=== PATIENT | female | born 1995 | race Caucasian/White ===

== ENCOUNTER → 2017-03-13 00:14 | Observation (INO) ==
[2017-03-12 23:26] VITALS: BP 127/87
--- NOTE | 2017-03-13 00:22 | OB/GYN Progress Note ---
Date of Encounter: 03/13/17 Time of Encounter: 00:17 - Assessment and Plan (1) Herpes genitalia Current Visit: Yes Status: Acute 22 y/o @ 36 weeks presented to L&D with complaints of bleeding when she wiped. She reports some vulvar burning as well. No LOF or ctxs, exam showed active genital herpetic lesions on the labia minora, cervix closed, NST reactive, Valtrex 1g PO BID x 10 days for treatment and 500mg daily till delivery ok for discharge Qualifiers: Herpes simplex infection site: vulvovaginitis Qualified Code(s): A60.04 - Herpesviral vulvovaginitis Objective - Vital Signs Vital Signs: Vital Signs Temp Pulse Resp BP 03/12/17 23:25 98.8 F 103 16 127/87 Intake and Output 03/12/17 03/12/17 03/13/17 15:59 23:59 07:59 Other: Weight 110.4 kg
== END | disposition home or self-care (01) ==
LOC: 1NENULAB
PROVIDERS: ADMIT Advanced Practice Midwife; ATTEND Advanced Practice Midwife

== ENCOUNTER → 2017-03-17 01:01 | Observation (INO) ==
[2017-03-16 22:41] LABS: Bilirubin,Urine Small (Negative); Blood,Urine Negative (Negative); Clarity,Urine Cloudy (Clear); Color,Urine Dark Yellow (Yellow); Glucose,Urine (UA) 250 mg/dL (Normal); Ketones,Urine Negative (Negative); Leukocyte Esterase,Urine Small (Negative); Nitrite,Urine Negative (Negative); Protein,Urine 30 mg/dL (Neg-Trace); Specific Gravity,Urine > 1.030 (1.010-1.025); Urobilinogen,Urine Normal (Normal)
[2017-03-16 22:43] LABS: Bacteria,Urine Many per hpf (None-Few); RBC,Urine 0-3 per hpf (0-3); Squamous Epithelial Cell,Urine Many per lpf (None-Few); WBC,Urine 30-50 per hpf (0-3)
--- NOTE | 2017-03-16 22:44 | OB/GYN Progress Note ---
Date of Encounter: 03/17/17 Time of Encounter: 22:42 - Assessment and Plan (1) Bacterial vaginal infection Current Visit: Yes Status: Acute Pt instructed to fruit picker Flagyl at pharmacy as soon as possible. (2) 36 weeks gestation of Current Visit: Yes Status: Acute (3) Flank pain, acute Current Visit: Yes Status: Acute UA with small leukocytes and no blood. Labs WNL. Possibility of gallstones discussed with pt. Pt to keep food and symptom diary. Will return to L&D for worsening symptoms. SVE closed. Discharge home with precautions. Follow-up on Monday as scheduled. Subjective - Subjective Interval history: 22 year-old presenting at 36w6d and reports severe achy pain and tightening in right flank area. She denies any other complaints including LOF, VB, urinary sx, fever, chills, vaginal discharge, itching or burning. Good FM. Antepartum ROS: movement normal, no loss of fluid, no vaginal bleeding, no contractions Objective - Vital Signs Vital Signs: Intake and Output 03/16/17 03/16/17 03/16/17 07:59 15:59 23:59 Other: Weight 109.8 kg Patient Weight 03/16/17 23:59 Weight 109.8 kg - Exam FHR: category 1 FHR comments: NST reactive, baseline 145 BPM Abdomen: Present: soft, gravid. Absent: tenderness Uterus: Absent: tenderness Comments: Rare contractions on toco. + CVAT on right.
[2017-03-16 23:23] LABS: Basophils % 0.2 %; Eosinophils # 0.1 K/mcL (0.0-0.6); Eosinophils % 0.6 %; Hematocrit 35.5 % (35.3-44.9); Hemoglobin 11.5 g/dL (11.5-15.4); Immature Granulocytes % 0.5 % (0-4); Lymphocytes # 1.6 K/mcL (0.6-4.6); Lymphocytes % 14.4 %; Mean Corpuscular HGB Conc 32.4 g/dL (31.6-35.5); Mean Corpuscular Hemoglobin 26.4 pg (28.0-33.3); Mean Corpuscular Volume 81.4 fL (83.0-100.0); Mean Platelet Volume 10.8 fL (9.4-12.4); Monocytes # 0.8 K/mcL (0.0-1.3); Monocytes % 7.1 %; Neutrophils # 8.5 K/mcL (1.6-8.9); Platelet Count 247 K/mcL (140-400); Red Blood Count 4.36 M/mcL (3.82-4.97); Red Cell Distribution Width 13.5 % (11.5-14.5); Segmented Neutrophils % 77.2 %
[2017-03-16 23:39] LABS: Alanine Aminotransferase 8 Units/L (0-55); Aspartate Amino Transferase 9 Units/L (5-34); BUN/Creatinine Ratio 11 (6-26); Blood Urea Nitrogen 7 mg/dL (7-20); Lactate Dehydrogenase 137 Units/L (159-327); eGFR For African Americans > 60 (> 60); eGFR For Non-African Americans > 60 (> 60)
[~2017-03-17 01:01] MED LIST: Acetaminophen 325 MG TABLET PO ONE
== END | disposition home or self-care (01) ==
LOC: 1NENULAB
PROVIDERS: ADMIT Registered Nurse; ATTEND Registered Nurse

== ENCOUNTER → 2017-03-21 06:52 | Observation (INO) ==
[2017-03-21 05:37] VITALS: BP 136/78
--- NOTE | 2017-03-21 06:31 | OB/GYN Progress Note ---
Date of Encounter: 03/21/17 Time of Encounter: 06:29 - Assessment and Plan (1) 37 weeks gestation of Current Visit: Yes Status: Acute NST reactive (2) False labor Current Visit: Yes Status: Acute No cervical change since appt in office yesterday. Discharge home with labor precautions. (3) Bacterial vaginal infection Current Visit: No Status: Acute Pt taking flagyl (4) Herpes genitalia Current Visit: No Status: Acute No current active lesions. Pt encouraged to take the medication she was given for suppression. Qualifiers: Herpes simplex infection site: vulvovaginitis Qualified Code(s): A60.04 - Herpesviral vulvovaginitis Subjective - Subjective Interval history: 22 year-old presenting at 37w4d with c/o contractions that started around 0200 this am. She denies LOF or VB. She reports that the contractions are getting closer together. She was 1cm in office yesterday. Good FM. Antepartum ROS: movement normal, contractions, no loss of fluid, no vaginal bleeding Objective - Vital Signs Vital Signs: Vital Signs Temp Pulse Resp BP 03/21/17 05:36 97.2 F L 100 16 136/78 Intake and Output 03/20/17 03/20/17 03/21/17 15:59 23:59 07:59 Other: Weight 110.4 kg Patient Weight 03/21/17 23:59 Weight 110.4 kg - Exam FHR: category 1 FHR comments: NST reactive Abdomen: Present: soft, gravid. Absent: tenderness Uterus: Absent: tenderness Cervical dilation: 1 Cervix effacement: 75 station: -2 Comments: SSE with thick clear-white discharge. No active HSV lesions noted.
== END | disposition home or self-care (01) ==
LOC: 1NENULAB
PROVIDERS: ADMIT Registered Nurse; ATTEND Registered Nurse

== ENCOUNTER 2017-03-23 21:55 | Observation (INO) ==
--- NOTE | 2017-04-17 09:40 | OB/GYN Progress Note ---
Date of Encounter: 03/23/17 Time of Encounter: 22:20 - Assessment and Plan (1) False labor Status: Acute Pt here with concern for labor. No cervical change noted. Discharged home in stable condition. Subjective - Subjective Interval history: Late entry for triage visit. 03/23/17 Pt here for labor evaluation. Contractions. Antepartum ROS: movement normal, contractions Objective - Exam Abdomen: Present: soft Uterus: Present: normal Cervical dilation: 1-2
== END 2017-03-23 22:35 | disposition home or self-care (01) ==
LOC: 1NENULAB
PROVIDERS: ADMIT Advanced Practice Midwife; ATTEND Advanced Practice Midwife

== ENCOUNTER 2017-04-07 03:45 | Inpatient (IN) ==
[2017-04-07] MEDS ORDERED: Metoclopramide 10 MG/2 ML VIAL IVP PRN (04:07)
[2017-04-07] MEDS ORDERED: Famotidine 20 MG/2 ML VIAL IVP PRN (04:07)
[2017-04-07] MEDS ORDERED: miSOPROStol 25 MCG TABLET PO PRN (04:07)
[2017-04-07] MEDS ORDERED: Naloxone 0.4 MG/ML INJ IVP PRN (04:07)
[2017-04-07] MEDS ORDERED: Ringers Solution, Lactated 1,000 ML IVC SCH (04:15)
[2017-04-07 04:48] LABS: Basophils % 0.2 %; Eosinophils # 0.1 K/mcL (0.0-0.6); Eosinophils % 1.2 %; Hematocrit 36.6 % (35.3-44.9); Hemoglobin 11.7 g/dL (11.5-15.4); Immature Granulocytes % 0.5 % (0-4); Immature Platelets 7.4 % (1.1-6.1); Lymphocytes # 1.6 K/mcL (0.6-4.6); Lymphocytes % 14.2 %; Mean Corpuscular Hemoglobin 26.2 pg (28.0-33.3); Mean Corpuscular Volume 81.9 fL (83.0-100.0); Mean Platelet Volume 11.6 fL (9.4-12.4); Monocytes # 0.9 K/mcL (0.0-1.3); Monocytes % 7.9 %; Neutrophils # 8.4 K/mcL (1.6-8.9); Platelet Count 240 K/mcL (140-400); Red Blood Count 4.47 M/mcL (3.82-4.97); Red Cell Distribution Width 14.5 % (11.5-14.5)
--- NOTE | 2017-04-07 06:54 | OB/GYN History & Physical ---
Date of Encounter: 04/07/17 Time of Encounter: 06:52 Assessment and Plan (1) 40 weeks gestation of Current visit: Yes Status: Acute induction of labor po cytotec nubain prn may augment with rupture of membranes and/or pitocin prn epidural if/when desired anticipate vaginal delivery History of Present Illness Chief complaint: induction HPI: Ms. Gregorio is a 22 year old female at 40.0 weeks gestation who presents for induction of labor. 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 Denies vaginal bleeding, loss of fluid, dizziness, blurred vision, headache. Reports good movement. Labs: GBS -, rubella immune Blood type A+ Past Med Surg Social Fam HX - Past Medical History Medical history: no medical history Psychiatric history: no psych history - Past Surgical History Surgical History: other - Social History Smoking Status: Never smoker Smokeless Tobacco Status: No Alcohol use: none Drug use: none - Family History Mother Adopted: No Family Member Ethnicity: Non- Living Status: Still Living Hx Family Cardiac Disorders: Yes (HTN) Hx Family Respiratory Disorders: No Hx Family Cancer: No Hx Family GI Disorders: No Hx Family Genitourinary Disorders: No Hx Family Endocrine Disorder: Yes (diabetes) Hx Family Musculoskeletal Disorders: No Hx Family Neuromuscular Disorders: No Hx Family Neurologic Disorders: No Hx Family HEENT Disorders: No Hx Family Autoimmune Disorders: No Hx Family Reproductive Disorders: No Hx Family Psychosocial Disorders: No Hx Family Medical Disorders: No Obstetrical History - Pregnancies : 1 Para: 0 Term: 0 : 0 Ab's: 0 Livin Medications and Allergies One Tablet 1 tab PO DAILY 03/12/17 [History] valACYclovir [Valtrex] 500 mg PO DAILY #60 tablet 03/13/17 [Rx] 3 Allergy/AdvReac Type Severity Reaction Status Date / Time No Known Allergies Allergy Verified 03/23/17 22:01 Review of System OB - Constitutional Constitutional ROS IM: as per HPI Exam - Constitutional Constitutional: well developed, well nourished, no acute distress - HEENT HEENT: Normocephaly, Mucus Membranes Moist - Neck Neck exam: normal inspection - Lungs Respiratory exam: CTAB - Cardiovascular Cardiovascular exam: RRR, +S1, +S2 - Abdomen Abdomen: Present: bowel sounds normal, gravid, non tender - Extremities Extremities exam: normal capillary refill, normal inspection, pedal edema, warm Results Result Diagrams: 04/07/17 04:41 Abnormal lab results MCV 81.9 fL (83.0-100.0) L 04/07/17 04:41 MCH 26.2 pg (28.0-33.3) L 04/07/17 04:41 Immature Plt Fraction 7.4 % (1.1-6.1) H 04/07/17 04:41 All other labs normal. - VTE Reasons for not Prescribing Prophylaxis: Treatment not Indicated - Low risk for VTE - Attending Attestation I examined this patient and my medical decision-making was reviewed with the Resident Physician. I agree with the documented findings, disposition and treatment plan as described except to the extent set forth below, except that this is an induction for medical indications, obesity at 40 weeks with a history of decreased movement. Please see my H&P from [facility] which has been included in the patient's medical record
[2017-04-07] MEDS ORDERED: miSOPROStol 100 MCG TABLET PO STA (09:20)
--- NOTE | 2017-04-07 09:29 | History & Physical Report ---
Date of Encounter: 04/07/17 Time of Encounter: 09:28 24 Hour HP Update - Instructions Instructions: If the History and Physical is less than 30 days old and was completed prior to A.M. admission and or procedure and has NOT been updated on calendar day of procedure please complete this update prior to performing procedure. - Update Patient reports changes in Medical Condition: No Changes in examination, assessment, or condition: No Changes in Medication: No Preop tests/diagnostics Reviewed: Yes Surgery Remains Indicated: Yes Consent for Planned Operative Procedure(s) Verified: Yes - Pre-Operative Checklist Preoperative Checklist Indicated: No Prophylactic Antibiotic Ordered: No Is VTE Prophylaxis Indicated?: NO
[2017-04-07] MEDS ORDERED: miSOPROStol 25 MCG TABLET PO STA (09:33)
--- NOTE | 2017-04-07 09:36 | OB Labor Progress Note ---
Date of Encounter: 04/07/17 Time of Encounter: 09:34 Labor Progress Note - Subjective Subjective: The patient reports an active fetus and also feeling that the contractions are coming regularly and strong. She denies any rupture of membranes or vaginal bleeding - Vital Signs Vital Signs: Afebrile, vital signs stable - Cervix Cervix: 2/90/-1, vertex with bulging membranes - Heart Tones Heart Tones: 130s baseline, CAT 1 - [place]: Contractions every 2-4 minutes after 50 mcg of Cytotec orally at 5:15 AM - Interventions Interventions: 40 week IUP for induction of labor secondary to medical indication of obesity and decreased movement - Plan Plan: The patient has received oral Cytotec. Cervix feels firm around the internal os , Pulido balloon placed without difficulty and filled with 30 mL of sterile water. The patient tolerated this well. Continue induction with a second dose of oral Cytotec, 25 MCG's
[2017-04-07] MEDS ORDERED: *HR* Nalbuphine 20 MG/ML AMPUL IVP PRN (10:33)
[2017-04-07] MEDS ORDERED: *HR* Nalbuphine 20 MG/ML AMPUL ONE (10:35)
[2017-04-07] MEDS ORDERED: Ringers Solution, Lactated 500 ML IVC ONE (12:00)
[2017-04-07] MEDS ORDERED: *HR* Ropivacaine/PF 0.2% 10 ML AMPUL EP ONE (12:00)
[2017-04-07] MEDS ORDERED: EPHEDrine 50 MG/ML VIAL IVP PRN (12:00)
[2017-04-07] MEDS ORDERED: *HR* FentaNYL (PF) 100 MCG/2 ML VIAL EP ONE (12:00)
[2017-04-07] MEDS ORDERED: Epidural Premix (fent/bupiv) 110 ML EP SCH (12:00)
[2017-04-07] MEDS ORDERED: *HR* FentaNYL (PF) 100 MCG/2 ML VIAL ONE ×3 (12:02→18:51)
[2017-04-07] MEDS ORDERED: Epidural Premix (fent/bupiv) 110 ML EP ONE ×2 (12:02→17:35)
--- NOTE | 2017-04-07 12:24 | Anesthesia Evaluation PreOp ---
Date of Encounter: 04/07/17 Time of Encounter: 11:55 - Past History Planned Operation: YU Cardiac History: Denies any Significant Hx Pulmonary History: Denies Any Significant HX MOLD SHIFTER History: Denies Any Significant HX Other Medical History: Denies Any Significant HX Anesthesia History: No Prior Anesthetic Complications, Past Anesthesia ( Tonsillectomy) : Yes Alcohol Use: none Drug use: none Medications and Allergies One Tablet 1 tab PO DAILY 03/12/17 [History] valACYclovir [Valtrex] 500 mg PO DAILY #60 tablet 03/13/17 [Rx] 3 Allergy/AdvReac Type Severity Reaction Status Date / Time No Known Allergies Allergy Verified 03/23/17 22:01 - Meds/Allergy Pre-op Review Medications Reviewed: Yes Allergies Reviewed: Yes Beta Blockers on Current Med List: No Anesthesia Results - Labs 04/07/17 04:41 Anesthesia Exam Height: 1.7m Weight: 109.5kg NPO (# of Hours): >4hrr Pain Scale: 10 Pain Scale Used: Numeric (1 - 10) - HEENT Pupil (Motor): Pupils equal Mallampati: II Teeth: Normal Oral Opening: Greater than 3 - MOLD SHIFTER LOC: Oriented MOLD SHIFTER Motor: Normal RUE, Normal LUE, Normal RLE, Normal LLE, Normal Face MOLD SHIFTER Sensory: Normal: RUE, LUE, RLE, LLE, Face - Cardiac Rhythm: Regular Murmur: None JVD: No Carotid Bruit: No - Pulmonary Breath Sounds: bilateral Clear Respiratory Effort: Symmetrical Anesthesia Assess/Plan ASA Score: 2 Modified Serene Scale for Level of Consciousness: Cooperative, oriented, and tranquil Anesthetic Plan: Regional Monitoring Plan: Standard Monitors Recovery Plan: Other
--- NOTE | 2017-04-07 12:26 | Anesthesia Procedures ---
Date of Encounter: 04/07/17 Time of Encounter: 12:05 Procedures: Anesthesia - Epidural/Spinal Patient ID/Chart reviewed: Yes Patient examined: Yes OB Eval: Gestational age: 40 OB Eval: : 1 OB Eval: Hx Para: 0 OB Eval: Contractions: Non-stressed pattern Consent Obtained: Yes Supplemental Oxygen: None/Room Air Site Prep: Aseptic Technique, Sterile prep and drape, 0.5% Chlorhexidine/Alcohol Patient position: upright Local Anesthetic: Lidocaine 1% Amount of Local Anesthetic used: 3 Touhy Needle Gauge: 18 Touhy Needle Depth (cm): 8 Catheter Depth at Skin (cm): 12 Test Dose (1.5% Lido + Epi): Volume given (mls): 5 Test Dose Result: Negative Loading Dose: Fentanyl (mcg): 100 Loading Dose: Other: Ropivacaine 0.5% 10mL Loading Dose Administered: Thru Catheter Infusion Med: 0.125% Bupivacaine w/ 2 mcg/ml Fentanyl Infusion Rate (mls/hr): 16 (Bolus 4mL q15min; Max 3/hr) Catheter Secured in Place: Tegaderm, Tape Interspace Used: L3-L4 Loss of Resistance ([place]): Yes Blood: No CSF: No Paresthesia: No Procedure: x1 attempt. Patient tolerated well. Vitals + FHT's: VSS and FHR stable throughout procedure. See nursing documentation.
--- NOTE | 2017-04-07 14:04 | OB Labor Progress Note ---
Date of Encounter: 04/07/17 Time of Encounter: 14:02 Labor Progress Note - Subjective Subjective: Pt comfortable in bed with epidural at this time. - Cervix Cervix: 4/90/-2 - Heart Tones Heart Tones: 135/moderate/+accels/-decels - Denhoff Denhoff: q2-3 - Interventions Interventions: AROM for small amount of clear fluid - Plan Plan: Continue current management plan Pitocin if no further cervical change Anticipate
[2017-04-07] MEDS ORDERED: Oxytocin 20 units/ LR 1000 mL 20 UNIT/1,000 ML BAG IVC ONE (18:43)
--- NOTE | 2017-04-07 23:00 | OB/GYN Procedure Note ---
Delivery - Delivery Date: 04/07/17 Provider: Lashonda Lassiter Intrapartum events: none Delivery induction: misoprostol Delivery augmentation: rupture of membranes Delivery monitor: external FHT, external uterine, internal uterine Anesthesia: intravenous, epidural Estimated Blood Loss: 200 - (s) A Delivery Date: 04/07/17 Delivery Time: 22:32 Presentation: vertex Position: SHELLY Route of delivery: Gender: Male Viability: Viable Pounds: 7 Ounces: 2 at 1 minute: 8 at 5 mins: 9 Shoulder Dystocia: not encountered Specimens collected: cord blood Placenta: spontaneous, uterine exploration Cord: nuchal cord, 3 umbilical vessels, nuchal reduced - Repair Episiotomy: none Laceration Description: Periurethral, Perineal - 2nd Degree - Complications Delivery complications: none Delivery comments: The patient was complete and pushing with epidural anesthesia with a spontaneous vaginal delivery in the SHELLY position of a vigorous male weighing 7 lbs. 2 oz. with Apgars of 8 at 1 minute and 9 at 5 minutes. was placed on the maternal abdomen. The cord was clamped and cut after pulsations ceased. Cord blood obtained. The placenta was delivered spontaneous and intact. Right labial laceration was not hemostatic and was repaired with 4-0 Vicryl in a running nonlocking fashion. Left periurethral laceration was hemostatic and not repaired. Second-degree perineal laceration was repaired with 3-0 Vicryl in usual fashion. Estimated blood loss 200 mL, complications none - Disposition Mom disposition: stable in LDR disposition: stable in LDR
[2017-04-07] MEDS ORDERED: Lanolin 7 G OINT...G. TP PRN (23:33)
[2017-04-07] MEDS ORDERED: Benzocaine/Menthol 56 GM AEROSOL SPRAY TP PRN (23:33)
[2017-04-07] MEDS ORDERED: Acetaminophen 325 MG TABLET PO PRN (23:33)
[2017-04-07] MEDS ORDERED: Oxytocin 20 units/ LR 1000 mL 20 UNIT/1,000 ML BAG IVC SCH (23:33)
[2017-04-08] MEDS: Ibuprofen 600 MG TABLET PO PRN ×2 (03:55→15:20)
[2017-04-08 05:56] LABS: Basophils % 0.1 %; Eosinophils # 0.1 K/mcL (0.0-0.6); Eosinophils % 0.5 %; Hematocrit 30.1 % (35.3-44.9); Immature Granulocytes % 0.6 % (0-4); Lymphocytes # 1.3 K/mcL (0.6-4.6); Lymphocytes % 8.2 %; Mean Corpuscular HGB Conc 32.2 g/dL (31.6-35.5); Mean Corpuscular Hemoglobin 26.2 pg (28.0-33.3); Mean Corpuscular Volume 81.4 fL (83.0-100.0); Mean Platelet Volume 11.6 fL (9.4-12.4); Monocytes % 6.2 %; Neutrophils # 13.5 K/mcL (1.6-8.9); Platelet Count 188 K/mcL (140-400); Red Cell Distribution Width 14.6 % (11.5-14.5); Segmented Neutrophils % 84.4 %
[2017-04-08 05:57] LABS: Hemoglobin 9.7 g/dL (11.5-15.4)
[2017-04-08] MEDS: Prenatal Vit/FA 1 EACH TABLET PO SCH (08:43)
[2017-04-08] MEDS ORDERED: valACYclovir 500 MG TABLET PO SCH (09:00)
--- NOTE | 2017-04-08 09:42 | OB/GYN Progress Note ---
Date of Encounter: 04/08/17 Time of Encounter: 09:40 - Assessment and Plan (1) Status post normal delivery Current Visit: Yes Status: Acute s/p , PPD#1, patient doing well, cont current inpt care Subjective - Subjective Patient reports: appetite normal, voiding normally, pain well controlled, ambulating normally : doing well Objective - Latest Vital Signs Latest vital signs: Vital Signs Temp Pulse Resp BP Pulse Ox 04/08/17 07:30 98.3 F 91 16 117/71 04/08/17 03:30 98.9 F 96 20 126/72 99 04/08/17 02:25 99 F 105 20 126/84 98 04/08/17 01:25 98.1 F 102 16 124/80 99 Intake and Output 04/07/17 04/08/17 04/08/17 23:59 07:59 15:59 Intake Total 300 / 300 360 / 360 Output Total 950 / 950 Balance -650 / -650 360 / 360 Intake: Oral 300 / 300 360 / 360 Output: Urine 950 / 950 Other: Meal Breakfast Percent of Meal Consumed 100% Weight 106.4 kg Patient Weight 04/08/17 23:59 Weight 106.4 kg - Exam Lungs: bilateral: normal Chest: Normal S1, Normal S2 Extremities: Present: normal Abdomen: Present: soft Uterus: Present: normal, firm - Labs Labs: Laboratory Results - last 24 hr 04/08/17 05:40 WBC 15.9 H RBC 3.70 L Hgb 9.7 L D Hct 30.1 L MCV 81.4 L MCH 26.2 L MCHC 32.2 RDW 14.6 H Plt Count 188 MPV 11.6 Immature Gran % 0.6 Seg Neutrophils % 84.4 Lymphocytes % 8.2 Monocytes % 6.2 Eosinophils % 0.5 Basophils % 0.1 Neutrophils # 13.5 H Lymphocytes # 1.3 Monocytes # 1.0 Eosinophils # 0.1 Basophils # 0.0
[2017-04-08] MEDS ORDERED: Sennosides 8.6 MG TABLET PO PRN (20:25)
[2017-04-09] MEDS: Ibuprofen 600 MG TABLET PO PRN (05:10)
[2017-04-09 08:50] VITALS: BP 117/69
[2017-04-09] MEDS: Prenatal Vit/FA 1 EACH TABLET PO SCH (08:53)
--- NOTE | 2017-04-09 09:30 | Discharge Summary ---
Date of Encounter: 04/09/17 Time of Encounter: 09:28 - Discharge Diagnosis (1) 40 weeks gestation of Priority: Secondary Status: Acute (2) Status post normal delivery Priority: Primary Status: Acute Comments: Patient was successful induction of labor. She is meeting milestones and is requesting discharge - Discharge Medications Prescriptions: Ibuprofen [Motrin] 600 mg PO Q6HR PRN #60 tab PRN Reason: Pain Home Medications: One Tablet 1 tab PO DAILY 03/12/17 [History] Breast Pump [BREAST PUMP] 1 each .ROUTE AD #1 each 04/09/17 [Rx] Ibuprofen [Motrin] 600 mg PO Q6HR PRN #60 tab 04/09/17 [Rx] Lanolin [Lansinoh] 1 appl TP QID PRN 04/09/17 [Rx] Allergies/Adverse Reactions: 3 Allergy/AdvReac Type Severity Reaction Status Date / Time No Known Allergies Allergy Verified 03/23/17 22:01 Data Procedures and tests throughout hospitalization: Laboratory Tests 04/07/17 04/08/17 04:41 05:40 WBC 11.1 15.9 H RBC 4.47 3.70 L Hgb 11.7 9.7 L D Hct 36.6 30.1 L MCV 81.9 L 81.4 L MCH 26.2 L 26.2 L MCHC 32.0 32.2 RDW 14.5 14.6 H Plt Count 240 188 MPV 11.6 11.6 Immature Gran % 0.5 0.6 Seg Neutrophils % 76.0 84.4 Lymphocytes % 14.2 8.2 Monocytes % 7.9 6.2 Eosinophils % 1.2 0.5 Basophils % 0.2 0.1 Neutrophils # 8.4 13.5 H Lymphocytes # 1.6 1.3 Monocytes # 0.9 1.0 Eosinophils # 0.1 0.1 Basophils # 0.0 0.0 Immature Plt Fraction 7.4 H Date of admission: 04/07/17 03:55 Primary care physician: Jessee Burgos Consults: 04/07/17 23:33 Consult to Slot Machine Repairer [CONS] Routine Comment: Vaginal delivery, consult needed Discharging clinician: Lashonda Lassiter Anticipated date of discharge: 04/09/17 - Patient Status Disposition: Home, Self-Care Condition: Good Functional capacity at discharge: independent ambulation Overall status at discharge: patient is progressing back to baseline - Discharge Instructions Follow Up With: Francine Michelle DO [Primary Care Provider] - Lashonda Lassiter MD [Partnered Physician] - - Diet and Activity Activity: increase activity as tolerated, resume usual activities as tolerated Diet: regular diet Hospital Course Procedures: IOL w/ Reason for admission: induction of labor, IUP at term Delivery: Episiotomy: none Laceration: 2nd degree Other procedures: none complications: none Discharge diagnosis: IUP at term delivered Diamond baby: male Hospital course: Uncomplicated, patient meeting milestones Time Attestation: Total time spent providing and/or coordinating discharge services: Time Spent: Less than 30 minutes Exam - Constitutional Vitals: Temp Pulse Resp BP Pulse Ox 97.6 F 77 16 117/69 99 04/09/17 07:40 04/09/17 07:40 04/09/17 07:40 04/09/17 07:40 04/08/17 19:50 General appearance IM: A&O X 3, pleasant, no acute distress, obese - Respiratory Respiratory exam: Absent: respiratory distress - Cardiovascular Cardiovascular exam IM: Absent: irregular rhythm - GI/Abdominal GI/Abdominal exam IM: soft, no peritoneal signs - Rectal Rectal exam: deferred - Uterine Tone: Firm Uterus Position: 1 Finger Below Umbilicus, Midline - Extremities Exam Extremities exam IM: Present: pedal edema, warm. Absent: calf tenderness - Neurological Exam Neurological exam: alert, no focal deficits
== END 2017-04-09 15:09 | disposition home or self-care (01) | DRG 774 ==
LOC: 1NENULAB 03:55 → 1NENUOBS 04-08 00:41
PROVIDERS: ADMIT Obstetrics & Gynecology; ATTEND Obstetrics & Gynecology

== ENCOUNTER → 2019-02-24 20:53 | Observation (INO) ==
[2019-02-24 19:13] LABS: Bilirubin,Urine Negative (Negative); Blood,Urine Negative (Negative); Clarity,Urine Clear (Clear); Color,Urine Yellow (Yellow); Glucose,Urine (UA) Normal (Normal); Ketones,Urine Negative (Negative); Leukocyte Esterase,Urine Negative (Negative); Nitrite,Urine Negative (Negative); PH,Urine 6.5 pH Units (5.0-8.0); Protein,Urine Negative (Neg-Trace); Specific Gravity,Urine 1.026 (1.010-1.025); Urobilinogen,Urine Normal (Normal)
[2019-02-24 19:22] LABS: Amphetamine Screen,Urine Negative ng/mL (Cutoff=1000); Barbiturate Screen,Urine Negative ng/mL (Cutoff=200); Benzodiazepines Screen,Urine Negative ng/mL (Cutoff=200); Cannabinoid Screen,Urine Negative ng/mL (Cutoff = 50); Cocaine Screen,Urine Negative ng/mL (Cutoff= 300); Opiate Screen,Urine Negative ng/mL (Cutoff=300); Phencyclidine Screen,Urine Negative ng/mL (Cutoff=25)
--- NOTE | 2019-02-24 19:48 | OB/GYN Progress Note ---
Date of Encounter: 02/24/19 Time of Encounter: 19:44 - Assessment and Plan (1) 25 weeks gestation of Current Visit: Yes Status: Acute Urinalysis - dehydration IV fluids Bentyl Discharge home with labor precautions and oral rehydration Follow up with routine care and PRN POC per consult with Dr Cody (2) Alternating constipation and diarrhea Current Visit: Yes Status: Acute Subjective - Subjective Principal diagnosis: Back pain Interval history: Ms Gregorio is a at 25 weeks and 0 days that presents to triage with c/o diarrhea alternating with constipation x 1 day and back pain that comes and goes that began after the bowel changes. She denies being around anyone that has similar symptoms, eating any different foods, or eating any foods that have been sitting out for a long period of time. She states fetus is moving well. She has been seen by Dr Lassiter for her care. She states she has a mild headache. She denies vision changes, epigastric pain, leaking of fluid, and vaginal bleeding. Antepartum ROS: movement normal Objective - Vital Signs Vital Signs: Intake and Output 02/24/19 02/24/19 02/24/19 07:59 15:59 23:59 Other: Weight 105 kg Patient Weight 02/24/19 23:59 Weight 105 kg - Exam FHR comments: Baseline 150 with moderate variability and 10 x 10 accels with no decels. No contractions per toco or palpation. Auscultation: bilateral: normal Abdomen: Present: normal appearance, soft, gravid, other (no CVA tenderness). Absent: tenderness Uterus: Present: normal. Absent: firm, tenderness - Labs Labs: Abnormal lab results Ur Specific [place] 1.026 (1.010-1.025) H 02/24/19 18:54
[~2019-02-24 20:53] MED LIST changes: -Acetaminophen 325 MG TABLET PO ONE; +Ondansetron ODT 4 MG TAB.RAPDIS SL PRN; +Ringers Solution, Lactated 1,000 ML IVC ONE
== END | disposition home or self-care (01) ==
LOC: 1NENULAB
PROVIDERS: ADMIT Advanced Practice Midwife; ATTEND Advanced Practice Midwife

== ENCOUNTER 2019-05-01 20:25 | Observation (INO) ==
[2019-05-01 18:40] LABS: Bilirubin,Urine Small (Negative); Blood,Urine Negative (Negative); Clarity,Urine Clear (Clear); Color,Urine Dark Yellow (Yellow); Glucose,Urine (UA) 250 mg/dL (Normal); Ketones,Urine Negative (Negative); Leukocyte Esterase,Urine Negative (Negative); Nitrite,Urine Negative (Negative); PH,Urine 5.5 pH Units (5.0-8.0); Protein,Urine Negative (Neg-Trace); Specific Gravity,Urine 1.029 (1.010-1.025); Urobilinogen,Urine Normal (Normal)
[2019-05-01 18:51] LABS: Amphetamine Screen,Urine Negative ng/mL (Cutoff=1000); Barbiturate Screen,Urine Negative ng/mL (Cutoff=200); Benzodiazepines Screen,Urine Negative ng/mL (Cutoff=200); Cannabinoid Screen,Urine Negative ng/mL (Cutoff = 50); Cocaine Screen,Urine Negative ng/mL (Cutoff= 300); Opiate Screen,Urine Negative ng/mL (Cutoff=300); Phencyclidine Screen,Urine Negative ng/mL (Cutoff=25)
--- NOTE | 2019-05-01 20:13 | Discharge Summary ---
Date of Encounter: 05/01/19 Time of Encounter: 20:13 - Discharge Diagnosis (1) 34 weeks gestation of Priority: Primary Status: Acute Comments: Admit to observation for complaint of abdominal pain, possible contractions (2) NST (non-stress test) reactive Priority: Secondary Status: Acute Comments: FHR 130 bpm, moderate variability, +15x15 accels, no decels. (3) uterine contractions in third trimester, antepartum Priority: Secondary Status: Acute Comments: Rare contractions noted on toco monitor. SVE 1/thick/high - Discharge Medications Prescriptions: No Action Vitamins Tablet 1 tab PO DAILY Dicyclomine [Bentyl] 10 mg PO QID PRN #10 capsule PRN Reason: Intestinal Cramping Home Medications: Gs Vitamins Tablet 1 tab PO DAILY 11/27/18 [History] Dicyclomine [Bentyl] 10 mg PO QID PRN #10 capsule 02/24/19 [Rx] Allergies/Adverse Reactions: Allergy/AdvReac Type Severity Reaction Status Date / Time hydromorphone [From Dilaudid] Allergy Hives Verified 11/27/18 12:01 Data Procedures and tests throughout hospitalization: Laboratory Tests 05/01/19 05/01/19 18:08 18:08 Urine Color Dark Yellow Urine Clarity Clear Urine pH 5.5 Ur Specific Sparks 1.029 H Urine Protein Negative Urine Glucose (UA) 250 H Urine Ketones Negative Urine Blood Negative Urine Nitrite Negative Urine Bilirubin Small H Urine Urobilinogen Normal Ur Leukocyte Esterase Negative Ur Culture Indicated? NO Urine Opiates Screen Negative Ur Buprenorphine Scrn Negative Ur Barbiturates Screen Negative Ur Phencyclidine Scrn Negative Ur Amphetamines Screen Negative U Benzodiazepines Scrn Negative Urine Cocaine Screen Negative U Marijuana (THC) Screen Negative Ur Drug Screen Interp See Below Labs on day of discharge: Labs from last 24 hours 05/01/19 05/01/19 18:08 18:08 Urine Color Dark Yellow Urine Clarity Clear Urine pH 5.5 Ur Specific Sparks 1.029 H Urine Protein Negative Urine Glucose (UA) 250 H Urine Ketones Negative Urine Blood Negative Urine Nitrite Negative Urine Bilirubin Small H Urine Urobilinogen Normal Ur Leukocyte Esterase Negative Ur Culture Indicated? NO Urine Opiates Screen Negative Ur Buprenorphine Scrn Negative Ur Barbiturates Screen Negative Ur Phencyclidine Scrn Negative Ur Amphetamines Screen Negative U Benzodiazepines Scrn Negative Urine Cocaine Screen Negative U Marijuana (THC) Screen Negative Ur Drug Screen Interp See Below Date of admission: 05/01/19 16:54 Discharging clinician: Tasha White Anticipated date of discharge: 05/01/19 - Patient Status Disposition: Home, Self-Care Condition: Good Functional capacity at discharge: independent ambulation Overall status at discharge: patient is progressing back to baseline - Discharge Instructions Follow Up With: Lashonda Lassiter MD [Partnered Physician] - - Diet and Activity Activity: resume usual activities as tolerated Diet: regular diet Hospital Course [employer] Hospital course: Patient arrived with complaint of vaginal pressure, contractions since 1529, back pain, and loss of mucous plug. She reports positive movement and denies fluid leakage and vaginal bleeding. Rare contractions were noted on toco monitor. Cervix is 1cm/thick/high. Patient is scheduled for routine care in approximately 2 weeks. She was given labor precautions and understands when to return. Time Attestation: Total time spent providing and/or coordinating discharge services: Time Spent: Less than 30 minutes Exam - Constitutional General appearance IM: A&O X 3, pleasant, no acute distress, answers questions appropriately - Respiratory Respiratory exam: Present: CTAB. Absent: respiratory distress - Cardiovascular Cardiovascular exam IM: Present: RRR, +S1, +S2. Absent: irregular rhythm - GI/Abdominal GI/Abdominal exam IM: normal bowel sounds, soft Incision: intact - Rectal Rectal exam: deferred - External exam: normal external exam - Extremities Exam Extremities exam IM: Present: full ROM, normal capillary refill, normal inspection. Absent: calf tenderness - Neurological Exam Neurological exam: alert, normal gait, oriented X3 - VTE Reasons for not Prescribing Prophylaxis: Treatment not Indicated - Low risk for VTE
== END 2019-05-01 20:30 | disposition home or self-care (01) ==
LOC: 1NENULAB
PROVIDERS: ADMIT Obstetrics & Gynecology; ATTEND Obstetrics & Gynecology

== ENCOUNTER 2019-05-24 20:00 | Inpatient (IN) ==
[2019-05-24 19:24] LABS: Bilirubin,Urine Negative (Negative); Blood,Urine Negative (Negative); Clarity,Urine Clear (Clear); Color,Urine Dark Yellow (Yellow); Glucose,Urine (UA) Normal (Normal); Ketones,Urine 40 mg/dL (Negative); Leukocyte Esterase,Urine Small (Negative); Nitrite,Urine Negative (Negative); PH,Urine 5.5 pH Units (5.0-8.0); Protein,Urine Trace mg/dL (Neg-Trace); Specific Gravity,Urine 1.025 (1.010-1.025); Urobilinogen,Urine Normal (Normal)
[2019-05-24 19:25] LABS: Hyaline Casts,Urine Few per lpf (None-Few); Squamous Epithelial Cell,Urine Many per lpf (None-Few); WBC,Urine 15-30 per hpf (0-3)
[2019-05-24 19:37] LABS: Amphetamine Screen,Urine Negative ng/mL (Cutoff=1000); Barbiturate Screen,Urine Positive ng/mL (Cutoff=200); Benzodiazepines Screen,Urine Negative ng/mL (Cutoff=200); Cannabinoid Screen,Urine Negative ng/mL (Cutoff = 50); Cocaine Screen,Urine Negative ng/mL (Cutoff= 300); Opiate Screen,Urine Negative ng/mL (Cutoff=300); Phencyclidine Screen,Urine Negative ng/mL (Cutoff=25)
[2019-05-24 19:56] LABS: Bacteria,Urine Few per hpf (None-Few)
[~2019-05-24 20:00] MED LIST changes: +*HR* Nalbuphine 10 MG/ML AMPUL IVP PRN; +Famotidine 20 MG/2 ML VIAL IVP PRN; +Lidocaine 1% 20 ML MDV INFILT PRN; +Metoclopramide 10 MG/2 ML VIAL IVP PRN; +Naloxone 0.4 MG/ML INJ IVP PRN; +Ondansetron 4 MG/2 ML VIAL IVP PRN; -Ondansetron ODT 4 MG TAB.RAPDIS SL PRN; -Ringers Solution, Lactated 1,000 ML IVC ONE; +Ringers Solution, Lactated 1,000 ML IVC SCH
[2019-05-24] MEDS ORDERED: Penicillin G Potassium 5,000,000 UNIT in 0.9 % Sodium Chloride Mini Bag 100 ML IVPB ONE (20:03)
[2019-05-24] MEDS ORDERED: *HR* FentaNYL (PF) 100 MCG/2 ML VIAL EP ONE (20:20)
[2019-05-24] MEDS ORDERED: Epidural Premix (fent/bupiv) 110 ML EP SCH (20:30)
[2019-05-24 20:32] LABS: Basophils % 0.1 %; Eosinophils # 0.1 K/mcL (0.0-0.6); Eosinophils % 0.4 %; Hematocrit 36.9 % (35.3-44.9); Hemoglobin 11.8 g/dL (11.5-15.4); Immature Granulocytes % 0.7 % (0-4); Lymphocytes # 1.8 K/mcL (0.6-4.6); Lymphocytes % 12.9 %; Mean Corpuscular Volume 84.4 fL (83.0-100.0); Mean Platelet Volume 11.8 fL (9.4-12.4); Monocytes # 0.8 K/mcL (0.0-1.3); Monocytes % 6.1 %; Platelet Count 215 K/mcL (140-400); Red Blood Count 4.37 M/mcL (3.82-4.97); Red Cell Distribution Width 13.5 % (11.5-14.5); Segmented Neutrophils % 79.8 %; White Blood Count 13.8 K/mcL (4.3-11.1)
[2019-05-24] MEDS ORDERED: *HR* FentaNYL (PF) 100 MCG/2 ML VIAL ONE (20:53)
[2019-05-24 20:54] LABS: Platelet Estimate Normal (Normal)
[2019-05-25] MEDS ORDERED: Penicillin G Potassium 2,500,000 UNIT in 0.9 % Sodium Chloride 100 ML IVPB SCH
[2019-05-25] MEDS ORDERED: Oxytocin 20 units/ LR 1000 mL 20 UNIT/1,000 ML BAG IVC SCH ×2 (00:15→09:10)
[2019-05-25] MEDS ORDERED: Ibuprofen 600 MG TABLET PO PRN (09:10)
[2019-05-25] MEDS ORDERED: Acetaminophen 325 MG TABLET PO PRN (09:10)
[2019-05-25] MEDS ORDERED: Measles/Mumps/Rubella Vacc 0.5 ML VIAL SQ PRN (09:10)
[2019-05-25] MEDS ORDERED: Rho Immune Globulin 1,500 UNIT SYRINGE IM PRN (09:10)
[2019-05-25] MEDS: Prenatal Vit/FA 1 EACH TABLET PO SCH (09:27)
[2019-05-26 07:50] VITALS: BP 114/81
[2019-05-26] MEDS ORDERED: FLU Vac QV 19-20 (6Month+)/PF 0.5 ML SYRINGE IM ONE (09:40)
[2019-05-26] MEDS: Prenatal Vit/FA 1 EACH TABLET PO SCH (10:11)
== END 2019-05-26 12:00 | disposition home or self-care (01) | DRG 806 ==
LOC: 1NENULAB → 1NENUOBS 05-25 08:36
PROVIDERS: ADMIT Registered Nurse; ATTEND Registered Nurse

== ENCOUNTER → 2020-02-27 22:00 | Observation (INO) ==
[2020-02-27 20:17] LABS: Bilirubin,Urine Negative (Negative); Blood,Urine Negative (Negative); Clarity,Urine Ex.Turbid (Clear); Color,Urine Yellow (Yellow); Glucose,Urine (UA) Normal (Normal); Ketones,Urine Trace mg/dL (Negative); Leukocyte Esterase,Urine Negative (Negative); Nitrite,Urine Negative (Negative); PH,Urine 5.5 pH Units (5.0-8.0); Protein,Urine 50 mg/dL (Neg-Trace); Specific Gravity,Urine > 1.030 (1.010-1.025)
[2020-02-27 20:36] LABS: Squamous Epithelial Cell,Urine Few per hpf (None-Few)
[2020-02-27 20:37] LABS: Mucus,Urine Few per lpf (None-Few)
[2020-02-27 20:38] LABS: Amorphous Sediment,Urine Many per hpf (None-Few)
[~2020-02-27 22:00] MED LIST changes: -*HR* Nalbuphine 10 MG/ML AMPUL IVP PRN; -Famotidine 20 MG/2 ML VIAL IVP PRN; -Lidocaine 1% 20 ML MDV INFILT PRN; -Metoclopramide 10 MG/2 ML VIAL IVP PRN; -Naloxone 0.4 MG/ML INJ IVP PRN; -Ondansetron 4 MG/2 ML VIAL IVP PRN; +Ringers Solution, Lactated 1,000 ML IVC ONE; -Ringers Solution, Lactated 1,000 ML IVC SCH; +Ringers Solution, Lactated 1,000 ML ONE
== END | disposition home or self-care (01) ==
LOC: 1NENULAB
PROVIDERS: ADMIT Obstetrics & Gynecology; ATTEND Obstetrics & Gynecology

== ENCOUNTER → 2020-07-05 21:37 | Observation (INO) ==
[2020-07-05 20:03] LABS: Bacteria,Urine Few per hpf (None-Few); Bilirubin,Urine Negative (Negative); Blood,Urine Negative (Negative); Clarity,Urine Clear (Clear); Color,Urine Yellow (Yellow); Glucose,Urine (UA) 50 mg/dL (Normal); Ketones,Urine Negative (Negative); Leukocyte Esterase,Urine Negative (Negative); Mucus,Urine Few per lpf (None-Few); Nitrite,Urine Negative (Negative); Protein,Urine 30 mg/dL (Neg-Trace); Specific Gravity,Urine > 1.030 (1.010-1.025); Squamous Epithelial Cell,Urine Moderate per hpf (None-Few)
[~2020-07-05 21:37] MED LIST changes: +Nitrofurantoin (BID) 100 MG CAPSULE PO STA; -Ringers Solution, Lactated 1,000 ML IVC ONE; -Ringers Solution, Lactated 1,000 ML ONE
== END | disposition home or self-care (01) ==
LOC: 1NENULAB
PROVIDERS: ADMIT Student in an Organized Health Care Education/Training Program; ATTEND Student in an Organized Health Care Education/Training Program

== ENCOUNTER 2020-07-06 23:04 | Inpatient (IN) ==
[~2020-07-06 23:04] MED LIST changes: +*HR* FentaNYL (PF) 100 MCG/2 ML VIAL IVP PRN; +Azithromycin 500 MG in 0.9 % Sodium Chloride 250 ML IVPB ONE; +Famotidine 20 MG/2 ML VIAL IVP PRN; +Lidocaine 1% 20 ML MDV INFILT PRN; +Metoclopramide 10 MG/2 ML VIAL IVP PRN; +Naloxone 0.4 MG/ML INJ IVP PRN; -Nitrofurantoin (BID) 100 MG CAPSULE PO STA; +Ondansetron 4 MG/2 ML VIAL IVP PRN
[2020-07-06 23:15] LABS: Basophils % 0.2 %; Eosinophils % 0.3 %; Hematocrit 38.4 % (35.3-44.9); Hemoglobin 12.6 g/dL (11.5-15.4); Immature Granulocytes % 0.3 % (0-4); Lymphocytes # 1.4 K/mcL (0.6-4.6); Lymphocytes % 12.5 %; Mean Corpuscular HGB Conc 32.8 g/dL (31.6-35.5); Mean Corpuscular Hemoglobin 28.3 pg (28.0-33.3); Mean Corpuscular Volume 86.3 fL (83.0-100.0); Mean Platelet Volume 11.7 fL (9.4-12.4); Monocytes # 0.7 K/mcL (0.0-1.3); Monocytes % 6.1 %; Neutrophils # 9.3 K/mcL (1.6-8.9); Platelet Count 211 K/mcL (140-400); Red Blood Count 4.45 M/mcL (3.82-4.97); Red Cell Distribution Width 13.9 % (11.5-14.5); Segmented Neutrophils % 80.6 %; White Blood Count 11.5 K/mcL (4.3-11.1)
[2020-07-06 23:25] LABS: Amphetamine Screen,Urine Negative ng/mL (Cutoff=1000); Barbiturate Screen,Urine Negative ng/mL (Cutoff=200); Benzodiazepines Screen,Urine Negative ng/mL (Cutoff=200); Cannabinoid Screen,Urine Negative ng/mL (Cutoff = 50); Cocaine Screen,Urine Negative ng/mL (Cutoff= 300); Opiate Screen,Urine Negative ng/mL (Cutoff=300); Phencyclidine Screen,Urine Negative ng/mL (Cutoff=25)
[2020-07-06] MEDS: Ringers Solution, Lactated 1,000 ML IVC SCH (23:30)
[2020-07-07] MEDS ORDERED: EPHEDrine 50 MG/ML VIAL IVP PRN (00:06)
[2020-07-07] MEDS ORDERED: *HR* FentaNYL (PF) 100 MCG/2 ML VIAL EP ONE (00:06)
[2020-07-07] MEDS ORDERED: *HR* FentaNYL (PF) 100 MCG/2 ML VIAL ONE (00:07)
[2020-07-07] MEDS: Epidural Premix (fent/bupiv) 110 ML EP SCH ×2 (00:30→05:35)
[2020-07-07] MEDS: Ringers Solution, Lactated 1,000 ML IVC SCH ×2 (00:49→05:38)
[2020-07-07] MEDS ORDERED: Oxytocin 20 units/ LR 1000 mL 20 UNIT/1,000 ML BAG IVC SCH ×2 (03:00→11:55)
[2020-07-07] MEDS ORDERED: Acetaminophen 325 MG TABLET PO PRN (11:55)
[2020-07-07] MEDS ORDERED: Oxytocin 20 units/ LR 1000 mL 20 UNIT/1,000 ML BAG IVC ONE (11:55)
[2020-07-07] MEDS ORDERED: Lanolin 7 G OINT...G. TP PRN (11:55)
[2020-07-07] MEDS: Ibuprofen 600 MG TABLET PO PRN (13:20)
[2020-07-07] MEDS: Nitrofurantoin (BID) 100 MG CAPSULE PO SCH (19:50)
[2020-07-08] MEDS: Ibuprofen 600 MG TABLET PO PRN ×2 (00:07→07:49)
[2020-07-08 04:58] LABS: Basophils % 0.1 %; Eosinophils # 0.1 K/mcL (0.0-0.6); Eosinophils % 1.2 %; Hematocrit 32.9 % (35.3-44.9); Hemoglobin 10.6 g/dL (11.5-15.4); Immature Granulocytes % 0.5 % (0-4); Lymphocytes # 1.3 K/mcL (0.6-4.6); Lymphocytes % 17.3 %; Mean Corpuscular HGB Conc 32.2 g/dL (31.6-35.5); Mean Corpuscular Hemoglobin 28.3 pg (28.0-33.3); Mean Platelet Volume 11.4 fL (9.4-12.4); Monocytes # 0.7 K/mcL (0.0-1.3); Monocytes % 9.2 %; Neutrophils # 5.5 K/mcL (1.6-8.9); Platelet Count 166 K/mcL (140-400); Red Blood Count 3.74 M/mcL (3.82-4.97); Red Cell Distribution Width 14.2 % (11.5-14.5); Segmented Neutrophils % 71.7 %; White Blood Count 7.6 K/mcL (4.3-11.1)
[2020-07-08] MEDS: Nitrofurantoin (BID) 100 MG CAPSULE PO SCH (07:49)
[2020-07-08 07:56] VITALS: BP 122/73
[2020-07-08] MEDS ORDERED: Prenatal Vit/FA 1 EACH TABLET PO SCH (09:00)
== END 2020-07-08 14:10 | disposition home or self-care (01) | DRG 806 ==
LOC: 1NENULAB → 1NENUOBS 07-07 11:46
PROVIDERS: ADMIT Obstetrics & Gynecology; ATTEND Obstetrics & Gynecology